=== PATIENT | female | born 1985 | race Caucasian/White ===

== ENCOUNTER → 2018-01-19 | Outpatient (CLI) | payer OTHER | LOC: M.LAB 09:30 | DX: Z13.71 Encounter for nonprocreative screening for genetic disease carrier status (principal) ==

== ENCOUNTER → 2018-11-05 | Outpatient (CLI) | payer OTHER | LOC: M.MRI 08:04 | DX: H93.13 Tinnitus, bilateral (principal); H90.6 Mixed conductive and sensorineural hearing loss, bilateral; H61.22 Impacted cerumen, left ear; K21.9 Gastro-esophageal reflux disease without esophagitis ==